=== PATIENT | male | born 1975 | race Two or more races ===

== ENCOUNTER 2024-01-01 20:26 | Emergency (ER) | payer SELFPAY ==
--- NOTE | ~2024-01-01 | XR_ITS ---
EXAMINATION: XR forearm LT 2V DATE: 01/01/2024 20:43 INDICATION: Left forearm dog bite. TECHNIQUE: 2 views of left forearm were obtained. COMPARISON: None. FINDINGS: Bone alignment is normal. No fracture. Joint spaces are normal. No elbow joint effusion. IMPRESSION: 1. No fracture or radiopaque foreign body. Reviewed, dictated and finalized at location E.
[2024-01-01 20:28] VITALS: BP 138/91; PULSE 102; RESP 18; TEMP 36.6; O2SAT 98
--- NOTE | 2024-01-01 20:40 | ED_ITS ---
HPI - Wound/Laceration General Chief Complaint: Animal Bite Stated Complaint: dog bite Time Seen by Provider: 01/01/24 20:34 Source: patient Mode of arrival: ambulatory Limitations: no limitations History of Present Illness HPI narrative: patient here 48-year-old male for a dog bite that occurred earlier this evening mainly to the left forearm and has a small abrasion to the right hand with no evidence of puncture wounds but the left forearm does appear swollen and tender to touch, does have a brisk radial pulse on the left. There is no fever chills no lacerations or otherwise puncture wounds. Onset (ago): hour(s) Extremity Location: Left: arm Place: outdoors Context: accidental Review of Systems Review of Systems: All systems reviewed & are unremarkable except as noted in HPI and below PMFSH Past Medical History Medical History Patient denies medical problems Exam Const: General: healthy appearing Nutritional Appearance: well nourished Orientation/consciousness: patient oriented x3 Limitations: no limitations Chest: Chest palpation & inspection: normal inspection of the chest Resp: Effort & Inspection: normal respiratory effort Auscultation: clear to auscultation bilaterally Cardio: Rate: regular rate Rhythm: regular rhythm Skin: Wounds: wounds noted Other: abrasion to the right hand palmar surface of his thumb area and mild abrasions to the left forearm with some swelling and tenderness with palpation. Extrem: General: normal to inspection Psych: Mental Status: mental status grossly normal Affect: normal affect Course Course Emergency Course: Patient received a dose of antibiotics with Augmentin p.o., updated patient with his tetanus vaccine and a dose of 60mg IM Toradol for pain relief, and x- ray performed of the left forearm which shows no acute fractures. Vital Signs Vital signs: Vital Signs Temperature 36.6 C 01/01/24 20:28 Pulse Rate 102 H 01/01/24 20:28 Respiratory Rate 18 01/01/24 20:28 Blood Pressure 138/91 H 01/01/24 20:28 Pulse Oximetry 98 01/01/24 20:28 Oxygen Delivery Room Air 01/01/24 20:28 Temperature 36.6 C 01/01/24 20:28 Pulse Rate 102 H 01/01/24 20:28 Respiratory Rate 18 01/01/24 20:28 Blood Pressure 138/91 H 01/01/24 20:28 Pulse Oximetry 98 01/01/24 20:28 Oxygen Delivery Room Air 01/01/24 20:28 Critical Care Time Critical Care Time Critical Care Time: No Discharge Plan Discharge Clinical Impression: Bite by animal Dog bite Qualifiers: Encounter type: initial encounter Qualified Code(s): W54.0XXA - Bitten by dog, initial encounter Patient Disposition: Home, Self-Care Condition: Stable Instructions: Antibiotic Form, Animal Bite (ED) Prescriptions: New amoxicillin-pot clavulanate [Augmentin] 500-125 mg tablet 1 tablet PO TID Qty: 30 0RF naproxen 500 mg tablet 500 mg PO BID PRN (Reason: pain) Qty: 14 0RF mupirocin 2 % ointment 1 applic topical TID 7 Days Qty: 15 0RF Follow-up/Referrals: UNKNOWN,DOCTOR [Primary Care Provider] - Time of Disposition: 21:01
[2024-01-01] MEDS: KETOROLAC (*BKC) 60 MG/2 ML VIAL IM (21:00)
[2024-01-01] MEDS: AMOXICILLIN/CLAVULANATE K 875-125 MG TAB 1 TABLET PO (21:01)
[2024-01-01] MEDS: NEOMYCIN/POLYMYXIN/BACITRACIN OINTMENT PACKET 1 PACKET TOPICAL (21:02)
== END 2024-01-01 21:35 | disposition home or self-care (01) ==
PROVIDERS: Emergency Provider Emergency Medicine
DX: S51.852A Open bite of left forearm, initial encounter (principal); W54.0XXA Bitten by dog, initial encounter
CPT/HCPCS: 73090; 96372; 99283; A9270; J1885